=== PATIENT | female | born 1960 | race Caucasian/White ===

== ENCOUNTER 2019-05-20 17:11 | Inpatient (IN) | payer MEDICAID ==
[~2019-05-20] VITALS: Ht 165.1 cm; Wt 67.8 kg
[2019-05-20] MEDS ORDERED: LEVETIRACETAM 500MG PREMIX 100 ML IV ONE (17:30)
[2019-05-20 17:43] LABS: BASOPHILS % 0.5 % (0.0-2.0); EOSINOPHILS % 4.3 % (0.0-5.0); HEMATOCRIT. 35.4 % (36.0-48.0); HEMOGLOBIN. 11.5 g/dL (12.0-16.0); MEAN CORPUSCULAR HEMOGLOBIN 28.7 pg (28.0-32.0); MEAN CORPUSCULAR VOLUME 88.9 fL (81.0-99.0); MONOCYTES % 8.2 % (2.0-8.0); PLATELET 115 x1000/uL (130-400); RED BLOOD CELL COUNT 3.99 mill/uL (4.2-5.4)
[2019-05-20 17:48] LABS: CHLORIDE 111 mEq/L (98-107)
[2019-05-20 17:51] LABS: CLARITY URINE CLEAR (CLEAR); COLOR URINE YELLOW (YELLOW); KETONES URINE NEGATIVE (NEGATIVE); LEUKOCYTE ESTERASE URINE NEGATIVE (NEGATIVE); NITRITE URINE NEGATIVE (NEGATIVE); OCCULT BLOOD URINE NEGATIVE (NEGATIVE); PH URINE 6.5 (4.5-8.0); PROTEIN URINE 1+ (NEGATIVE); SPECIFIC GRAVITY URINE 1.021 (1.005-1.030)
[2019-05-20 17:52] LABS: ETHANOL BLOOD < 10 mg/dL
[2019-05-20 18:05] LABS: *BARBITURATES SCREEN URINE NEGATIVE (NEGATIVE)
[2019-05-20 18:06] LABS: *AMPHETAMINES SCREEN URINE NEGATIVE (NEGATIVE); *BENZODIAZEPINES SCREEN URINE PRESUMTIVE POSITIVE (NEGATIVE); *COCAINE SCREEN URINE NEGATIVE (NEGATIVE); METHADONE URINE SCREEN NEGATIVE (NEGATIVE); OPIATES URINE SCREEN NEGATIVE (NEGATIVE)
[2019-05-20 18:07] LABS: CANNABINOID URINE SCREEN NEGATIVE (NEGATIVE); PHENCYCLIDINE URINE SCREEN NEGATIVE (NEGATIVE)
[2019-05-20] MEDS ORDERED: IPRATROPIUM/ALBUTEROL 0.5-3(2.5)MG/3ML NEB NEB PRN (22:30)
[2019-05-20] MEDS ORDERED: ONDANSETRON HCL 4MG/2ML INJ IV PRN (22:30)
[2019-05-20] MEDS ORDERED: LEVETIRACETAM 500 MG in SODIUM CHLORIDE 0.9% 100 ML IV SCH (22:30)
[2019-05-20] MEDS ORDERED: CLONIDINE 0.1MG TABLET PO PRN (22:30)
[2019-05-20] MEDS ORDERED: MAGNESIUM/ALUMINUM HYDROXIDE/SIMETHICONE 30ML UDC PO PRN (22:30)
[2019-05-20] MEDS ORDERED: ACETAMINOPHEN 325MG TABLET PO PRN (22:30)
[2019-05-20] MEDS ORDERED: ACETAMINOPHEN 650MG/20.3ML UDC GT PRN (22:30)
[2019-05-20] MEDS ORDERED: ACETAMINOPHEN 650MG SUPP PR PRN (22:30)
[2019-05-20] MEDS ORDERED: NA PHOS,M-B/NA PHOS,DI-BA ENEMA 118ML PR PRN (22:30)
[2019-05-20] MEDS ORDERED: DOCUSATE SODIUM 100MG CAPSULE PO PRN (22:30)
[2019-05-20] MEDS ORDERED: GUAIFENESIN 200MG/10ML SUGAR FREE UDC PO PRN (22:30)
[2019-05-20] MEDS ORDERED: DIPHENHYDRAMINE 50MG/ML VIAL IV PRN (22:30)
[2019-05-20] MEDS ORDERED: LORAZEPAM 2MG/ML CPJ IM PRN (22:30)
[2019-05-21 00:15] VITALS: BP 118/64
[2019-05-21 00:19] VITALS: BP 118/64
[2019-05-21] MEDS: DEXT 5%/0.45% NACL 1000ML 1,000 ML IV SCH ×3 (01:49→22:00)
[2019-05-21] MEDS: SODIUM CHLORIDE 0.9% INJ 3ML FLUSH IVF SCH ×3 (06:00→22:00)
[2019-05-21 06:38] LABS: BASOPHILS % 0.4 % (0.0-2.0); CHLORIDE 112 mEq/L (98-107); EOSINOPHILS % 1.3 % (0.0-5.0); HEMOGLOBIN. 9.9 g/dL (12.0-16.0); LYMPHOCYTES % 19.1 % (20.0-50.0); MEAN CORPUSCULAR HEMOGLOBIN 28.4 pg (28.0-32.0); MEAN CORPUSCULAR VOLUME 86.4 fL (81.0-99.0); MEAN PLATELET VOLUME 7.2 fl (7.4-10.4); MONOCYTES % 5.6 % (2.0-8.0); NEUTROPHILS % 73.6 % (40.0-76.0); PLATELET 96 x1000/uL (130-400); RED BLOOD CELL COUNT 3.48 mill/uL (4.2-5.4); RED CELL DISTRIBUTION WIDTH 15.6 % (11.6-14.6)
[2019-05-21 06:52] LABS: LDL CHOLESTEROL 55 mg/dL (5-100)
[2019-05-21 06:54] LABS: HDL CHOLESTEROL 59 mg/dL (40-59)
[2019-05-21 08:00] VITALS: BP 108/63
[2019-05-21] MEDS ORDERED: LEVETIRACETAM 500 MG in SODIUM CHLORIDE 0.9% 100 ML IV SCH (09:00)
[2019-05-21] MEDS ORDERED: POTASSIUM CHLORIDE 20MEQ TABLET SR PO SCH (10:00)
[2019-05-21 12:08] VITALS: BP 92/57
[2019-05-21 16:00] VITALS: BP 100/57
[2019-05-21] MEDS: LEVETIRACETAM 500MG TABLET PO SCH (16:54)
[2019-05-21 20:00] VITALS: BP 101/58
[2019-05-21] MEDS ORDERED: POTASSIUM CHLORIDE 20MEQ TABLET SR PO ONE (20:00)
[2019-05-22] VITALS: BP 107/66
[2019-05-22 00:01] LABS: BASOPHILS % 0.5 % (0.0-2.0); EOSINOPHILS % 3.7 % (0.0-5.0); LYMPHOCYTES % 28.2 % (20.0-50.0); MEAN CORPUSCULAR HEMOGLOBIN 28.6 pg (28.0-32.0); MEAN CORPUSCULAR VOLUME 86.1 fL (81.0-99.0); MONOCYTES % 6.8 % (2.0-8.0); NEUTROPHILS % 60.8 % (40.0-76.0); PLATELET 94 x1000/uL (130-400); RED BLOOD CELL COUNT 3.49 mill/uL (4.2-5.4); RED CELL DISTRIBUTION WIDTH 15.7 % (11.6-14.6)
[2019-05-22 04:00] VITALS: BP 101/77
[2019-05-22] MEDS: SODIUM CHLORIDE 0.9% INJ 3ML FLUSH IVF SCH ×3 (05:07→22:00)
[2019-05-22 08:00] VITALS: BP 96/58
[2019-05-22] MEDS: DEXT 5%/0.45% NACL 1000ML 1,000 ML IV SCH (08:00)
[2019-05-22] MEDS: LEVETIRACETAM 500MG TABLET PO SCH ×2 (08:57→16:46)
[2019-05-22 12:00] VITALS: BP 106/55
[2019-05-22] MEDS ORDERED: KEPP500 MT (12:46)
[2019-05-22 16:00] VITALS: BP 113/65
[2019-05-22 20:00] VITALS: BP 108/60
[2019-05-23] VITALS: BP 101/64
[2019-05-23 04:00] VITALS: BP 99/52
[2019-05-23] MEDS: DEXT 5%/0.45% NACL 1000ML 1,000 ML IV SCH ×2 (04:00→14:00)
[2019-05-23] MEDS ORDERED: POTASSIUM CHLORIDE 20MEQ TABLET SR PO PRN (05:00)
[2019-05-23] MEDS: SODIUM CHLORIDE 0.9% INJ 3ML FLUSH IVF SCH (05:03)
[2019-05-23 08:00] VITALS: BP 98/64
[2019-05-23] MEDS: LEVETIRACETAM 500MG TABLET PO SCH (09:21)
[2019-05-23 11:44] LABS: BASOPHILS % 0.3 % (0.0-2.0); EOSINOPHILS % 2.5 % (0.0-5.0); HEMATOCRIT. 33.2 % (36.0-48.0); LYMPHOCYTES % 24.4 % (20.0-50.0); MEAN CORPUSCULAR HEMOGLOBIN 28.7 pg (28.0-32.0); MEAN CORPUSCULAR VOLUME 86.2 fL (81.0-99.0); MEAN PLATELET VOLUME 7.5 fl (7.4-10.4); MONOCYTES % 6.5 % (2.0-8.0); NEUTROPHILS % 66.3 % (40.0-76.0); PLATELET 100 x1000/uL (130-400); RED BLOOD CELL COUNT 3.85 mill/uL (4.2-5.4); RED CELL DISTRIBUTION WIDTH 15.8 % (11.6-14.6)
[2019-05-23 12:00] VITALS: BP 116/68
[2019-05-23 13:25] LABS: CHLORIDE 107 mEq/L (98-107)
[2019-05-23 14:07] LABS: HEPATITIS B SURFACE ANTIGEN NEGATIVE
[2019-05-23 14:36] LABS: HEPATITIS A AB IGM NEGATIVE (NEGATIVE)
[2019-05-23 15:37] VITALS: BP 116/68
== END 2019-05-23 18:10 | disposition home or self-care (01) | DRG 53 ==
LOC: ER 17:11 → 8WST 22:24 → EDBEDREQTM 22:27 → EDBEDREQ 22:27 → ENRESERV 22:48
PROVIDERS: ADMIT Family Medicine; ATTEND Family Medicine
PROC: 4A00X4Z Measurement of Central Nervous Electrical Activity, External Approach (ICD-10-PCS; principal; 2019-05-23)
DX: G40.909 Epilepsy, unspecified, not intractable, without status epilepticus (principal); D69.6 Thrombocytopenia, unspecified; D64.9 Anemia, unspecified; Z59.0 Homelessness; R74.0 Nonspecific elevation of levels of transaminase and lactic acid dehydrogenase [LDH]; Z91.19 Patient's noncompliance with other medical treatment and regimen
CPT/HCPCS: 36415; 76705; 80061; 80305; 80320; 81003; 82962; 86705; 86709; 86803; 87340; 93005; 95816; 96365; 99285; C1893; J1953; J7050; G0480

== ENCOUNTER 2021-05-08 10:43 | Inpatient (IN) | payer MEDICAID ==
[~2021-05-08] VITALS: Ht 144.8 cm; Wt 56.7 kg
[~2021-05-08 10:43] MED LIST: KEPP500 MT; KEPPSOL MT; LACO100T2 MT; LACT10SO30 MT; LORA-249 PO; MELA1TAB28 PO; OLAN10TA3 PO; QUET25TA PO; THIA250T3 PO; TOPUD PO
[2021-05-08] MEDS ORDERED: SODIUM CHLORIDE 0.9% 1,000 ML IV ONE (11:15)
[2021-05-08] MEDS ORDERED: HALOPERIDOL LACTATE 5MG/ML VIAL IM STA (11:56)
[2021-05-08] MEDS ORDERED: DIPHENHYDRAMINE 50MG/ML VIAL IM STA (11:57)
[2021-05-08 12:15] LABS: CLARITY URINE CLEAR (CLEAR); COLOR URINE YELLOW (YELLOW); KETONES URINE NEGATIVE (NEGATIVE); LEUKOCYTE ESTERASE URINE TRACE (NEGATIVE); NITRITE URINE POSITIVE (NEGATIVE); OCCULT BLOOD URINE NEGATIVE (NEGATIVE); PH URINE 6.5 (4.5-8.0); PROTEIN URINE NEGATIVE (NEGATIVE); SPECIFIC GRAVITY URINE 1.005 (1.005-1.030); UROBILINOGEN URINE 0.2 E.U./dL (0.2-1.0)
[2021-05-08 12:34] LABS: *AMPHETAMINES SCREEN URINE NEGATIVE (NEGATIVE); *BARBITURATES SCREEN URINE NEGATIVE (NEGATIVE); *BENZODIAZEPINES SCREEN URINE NEGATIVE (NEGATIVE); *COCAINE SCREEN URINE NEGATIVE (NEGATIVE); METHADONE URINE SCREEN NEGATIVE (NEGATIVE); OPIATES URINE SCREEN NEGATIVE (NEGATIVE)
[2021-05-08 12:35] LABS: CANNABINOID URINE SCREEN NEGATIVE (NEGATIVE); PHENCYCLIDINE URINE SCREEN NEGATIVE (NEGATIVE)
[2021-05-08 13:33] LABS: BASOPHILS % 0.3 % (0.0-2.0); EOSINOPHILS % 2.2 % (0.0-5.0); HEMATOCRIT. 35.4 % (36.0-48.0); HEMOGLOBIN. 12.4 g/dL (12.0-16.0); LYMPHOCYTES % 29.8 % (20.0-50.0); MEAN CORPUSCULAR HEMOGLOBIN 32.5 pg (28.0-32.0); MEAN CORPUSCULAR VOLUME 92.8 fL (81.0-99.0); MEAN PLATELET VOLUME 7.2 fl (7.4-10.4); MONOCYTES % 8.3 % (2.0-8.0); NEUTROPHILS % 59.4 % (40.0-76.0); PLATELET 100 x1000/uL (130-400); RED BLOOD CELL COUNT 3.81 mill/uL (4.2-5.4)
[2021-05-08 13:39] LABS: CHLORIDE 111 mEq/L (98-107)
[2021-05-08] MEDS ORDERED: LEVETIRACETAM 500MG PREMIX 100 ML IV ONE (15:00)
[2021-05-08] MEDS ORDERED: ACETAMINOPHEN 325MG TABLET PO PRN (15:00)
[2021-05-08] MEDS ORDERED: OLANZAPINE 10 MG/VIAL IM PRN (15:15)
[2021-05-08] MEDS ORDERED: LORAZEPAM 2MG/ML CPJ IV PRN (15:15)
[2021-05-08] MEDS ORDERED: LEVOFLOXACIN 750MG PREMIX 150 ML IV SCH (16:00)
[2021-05-08 16:15] VITALS: BP 116/83
[2021-05-08] MEDS: THIAMINE HCL 100MG TABLET PO SCH (17:36)
[2021-05-08] MEDS: LACOSAMIDE 100 MG TABLET PO SCH (17:36)
[2021-05-08] MEDS ORDERED: QUET25TA PO (18:19)
[2021-05-08] MEDS ORDERED: LORA-249 PO (18:19)
[2021-05-08] MEDS ORDERED: MOM PO (18:19)
[2021-05-08] MEDS ORDERED: OLAN10TA3 PO (18:19)
[2021-05-08] MEDS ORDERED: MELA3TAB42 PO (18:19)
[2021-05-08] MEDS: LEVOFLOXACIN 750MG PREMIX 150 ML IV SCH (18:24)
[2021-05-08 20:00] VITALS: BP 103/60
[2021-05-08] MEDS: LEVETIRACETAM 500MG TABLET PO SCH (20:53)
[2021-05-08] MEDS ORDERED: OLANZAPINE 10MG TABLET PO SCH (22:00)
[2021-05-08] MEDS: LAMOTRIGINE 25MG TABLET PO SCH (22:26)
[2021-05-08] MEDS: HALOPERIDOL LACTATE 5MG/ML VIAL IM PRN (22:27)
[2021-05-09] VITALS: BP 104/61
[2021-05-09 04:00] VITALS: BP 102/60
[2021-05-09] MEDS: HALOPERIDOL LACTATE 5MG/ML VIAL IM PRN ×2 (06:21→17:37)
[2021-05-09 08:00] VITALS: BP 110/52
[2021-05-09] MEDS: LEVETIRACETAM 500MG TABLET PO SCH ×2 (08:22→21:47)
[2021-05-09] MEDS: LAMOTRIGINE 25MG TABLET PO SCH (08:22)
[2021-05-09] MEDS: LACOSAMIDE 100 MG TABLET PO SCH ×2 (08:22→16:31)
[2021-05-09] MEDS: THIAMINE HCL 100MG TABLET PO SCH (08:22)
[2021-05-09] MEDS ORDERED: OLANZAPINE 10 MG/VIAL IM NR (09:00)
[2021-05-09] MEDS: LEVOFLOXACIN 750MG PREMIX 150 ML IV SCH (11:00)
[2021-05-09] MEDS ORDERED: OLANZAPINE 10 MG/VIAL IM PRN (11:45)
[2021-05-09 12:00] VITALS: BP 108/66
[2021-05-09 16:00] VITALS: BP 113/76
[2021-05-09 20:00] VITALS: BP 105/70
[2021-05-09] MEDS: OLANZAPINE 5MG TABLET ODT PO SCH (21:48)
[2021-05-10] VITALS: BP 113/60
[2021-05-10 04:00] VITALS: BP 131/52
[2021-05-10 07:01] LABS: BASOPHILS % 0.6 % (0.0-2.0); EOSINOPHILS % 3.3 % (0.0-5.0); HEMATOCRIT. 37.4 % (36.0-48.0); HEMOGLOBIN. 12.7 g/dL (12.0-16.0); LYMPHOCYTES % 31.1 % (20.0-50.0); MEAN CORPUSCULAR HEMOGLOBIN 31.3 pg (28.0-32.0); MEAN CORPUSCULAR VOLUME 92.3 fL (81.0-99.0); MEAN PLATELET VOLUME 7.5 fl (7.4-10.4); MONOCYTES % 8.7 % (2.0-8.0); NEUTROPHILS % 56.3 % (40.0-76.0); PLATELET 104 x1000/uL (130-400); RED BLOOD CELL COUNT 4.05 mill/uL (4.2-5.4); RED CELL DISTRIBUTION WIDTH 16.1 % (11.6-14.6)
[2021-05-10 07:06] LABS: CHLORIDE 109 mEq/L (98-107)
[2021-05-10 08:00] VITALS: BP 140/59
[2021-05-10] MEDS ORDERED: LIDOCAINE HCL 1% 30ML VIAL (10MG/ML) ONE (08:25)
[2021-05-10] MEDS: LACOSAMIDE 100 MG TABLET PO SCH ×2 (09:32→17:37)
[2021-05-10] MEDS: LAMOTRIGINE 25MG TABLET PO SCH (09:32)
[2021-05-10] MEDS: OLANZAPINE 5MG TABLET ODT PO SCH ×2 (09:32→20:54)
[2021-05-10] MEDS: LEVETIRACETAM 500MG TABLET PO SCH ×2 (09:32→20:54)
[2021-05-10] MEDS: THIAMINE HCL 100MG TABLET PO SCH (09:32)
[2021-05-10] MEDS: LEVOFLOXACIN 500MG TABLET PO SCH (11:47)
[2021-05-10 12:00] VITALS: BP 104/72
[2021-05-10 16:00] VITALS: BP 105/64
[2021-05-10 20:00] VITALS: BP 108/60
[2021-05-10] MEDS: LORAZEPAM 2MG/ML CPJ IV PRN (20:54)
[2021-05-11] VITALS: BP 111/60
[2021-05-11] MEDS: LORAZEPAM 2MG/ML CPJ IV PRN (01:00)
[2021-05-11 04:00] VITALS: BP 114/77
[2021-05-11 08:00] VITALS: BP 108/80
[2021-05-11] MEDS: LAMOTRIGINE 25MG TABLET PO SCH (08:16)
[2021-05-11] MEDS: OLANZAPINE 5MG TABLET ODT PO SCH ×2 (08:16→21:07)
[2021-05-11] MEDS: LEVETIRACETAM 500MG TABLET PO SCH ×2 (08:16→20:56)
[2021-05-11] MEDS: LACOSAMIDE 100 MG TABLET PO SCH ×2 (08:16→16:33)
[2021-05-11] MEDS: THIAMINE HCL 100MG TABLET PO SCH (08:16)
[2021-05-11] MEDS: LEVOFLOXACIN 500MG TABLET PO SCH (11:02)
[2021-05-11 12:00] VITALS: BP 97/66
[2021-05-11 16:00] VITALS: BP 100/72
[2021-05-11 20:00] VITALS: BP 101/67
[2021-05-11] MEDS: POTASSIUM CHLORIDE 20MEQ/PACKET PO SCH (20:56)
[2021-05-12] VITALS: BP 102/66
[2021-05-12] MEDS: HALOPERIDOL LACTATE 5MG/ML VIAL IM PRN ×2 (00:41→10:58)
[2021-05-12 04:00] VITALS: BP 145/73
[2021-05-12] MEDS: LORAZEPAM 2MG/ML CPJ IV PRN (06:59)
[2021-05-12 08:00] VITALS: BP 119/72
[2021-05-12] MEDS: THIAMINE HCL 100MG TABLET PO SCH (10:05)
[2021-05-12] MEDS: LACOSAMIDE 100 MG TABLET PO SCH ×2 (10:06→18:13)
[2021-05-12] MEDS: OLANZAPINE 5MG TABLET ODT PO SCH ×2 (10:06→21:21)
[2021-05-12] MEDS: LAMOTRIGINE 25MG TABLET PO SCH (10:06)
[2021-05-12] MEDS: LEVETIRACETAM 500MG TABLET PO SCH ×2 (10:06→21:21)
[2021-05-12] MEDS: POTASSIUM CHLORIDE 20MEQ/PACKET PO SCH (10:10)
[2021-05-12] MEDS: LEVOFLOXACIN 500MG TABLET PO SCH (11:00)
[2021-05-12 11:12] LABS: CHLORIDE 110 mEq/L (98-107)
[2021-05-12 12:00] VITALS: BP 125/92
[2021-05-12 18:00] VITALS: BP 112/69
[2021-05-12 20:00] VITALS: BP 113/78
[2021-05-13] VITALS: BP 120/60
[2021-05-13 04:00] VITALS: BP 104/71
[2021-05-13] MEDS: LORAZEPAM 2MG/ML CPJ IV PRN (06:29)
[2021-05-13] MEDS: POTASSIUM CHLORIDE 20MEQ/PACKET PO SCH (09:42)
[2021-05-13] MEDS: LEVETIRACETAM 500MG TABLET PO SCH ×2 (09:42→21:48)
[2021-05-13] MEDS: LACOSAMIDE 100 MG TABLET PO SCH ×2 (09:42→18:44)
[2021-05-13] MEDS: OLANZAPINE 5MG TABLET ODT PO SCH ×2 (09:42→21:48)
[2021-05-13] MEDS: THIAMINE HCL 100MG TABLET PO SCH (09:42)
[2021-05-13] MEDS: LAMOTRIGINE 25MG TABLET PO SCH (09:43)
[2021-05-13] MEDS: LEVOFLOXACIN 500MG TABLET PO SCH (10:08)
[2021-05-13 12:00] VITALS: BP 110/60
[2021-05-13] MEDS: RISPERIDONE 0.5MG TABLET PO SCH (15:07)
[2021-05-13 16:00] VITALS: BP 114/70
[2021-05-13 20:00] VITALS: BP 104/76
[2021-05-13] MEDS: NITROFURANTOIN 100MG M/M CAPSULE PO SCH (21:49)
[2021-05-14] VITALS: BP 100/60
[2021-05-14 04:00] VITALS: BP 100/63
[2021-05-14 06:13] LABS: BASOPHILS % 0.4 % (0.0-2.0); HEMATOCRIT. 37.6 % (36.0-48.0); LYMPHOCYTES % 32.7 % (20.0-50.0); MEAN CORPUSCULAR HEMOGLOBIN 31.8 pg (28.0-32.0); MEAN CORPUSCULAR VOLUME 92.2 fL (81.0-99.0); MEAN PLATELET VOLUME 7.6 fl (7.4-10.4); MONOCYTES % 9.2 % (2.0-8.0); NEUTROPHILS % 54.7 % (40.0-76.0); PLATELET 84 x1000/uL (130-400); RED BLOOD CELL COUNT 4.08 mill/uL (4.2-5.4)
[2021-05-14 06:18] LABS: CHLORIDE 110 mEq/L (98-107)
[2021-05-14 08:00] VITALS: BP 98/68
[2021-05-14] MEDS: LACOSAMIDE 100 MG TABLET PO SCH ×2 (09:08→17:36)
[2021-05-14] MEDS: OLANZAPINE 5MG TABLET ODT PO SCH ×2 (09:08→20:31)
[2021-05-14] MEDS: THIAMINE HCL 100MG TABLET PO SCH (09:08)
[2021-05-14] MEDS: POTASSIUM CHLORIDE 20MEQ/PACKET PO SCH (09:08)
[2021-05-14] MEDS: RISPERIDONE 0.5MG TABLET PO SCH (09:08)
[2021-05-14] MEDS: LEVETIRACETAM 500MG TABLET PO SCH ×2 (09:08→20:31)
[2021-05-14] MEDS: LAMOTRIGINE 25MG TABLET PO SCH (09:08)
[2021-05-14] MEDS: NITROFURANTOIN 100MG M/M CAPSULE PO SCH ×2 (09:12→20:32)
[2021-05-14 12:00] VITALS: BP 102/63
[2021-05-14 16:00] VITALS: BP 106/67
[2021-05-14 20:00] VITALS: BP 110/66
[2021-05-15] VITALS: BP 115/77
[2021-05-15 04:00] VITALS: BP 113/60
[2021-05-15 08:00] VITALS: BP 97/58
[2021-05-15] MEDS: NITROFURANTOIN 100MG M/M CAPSULE PO SCH ×2 (09:13→20:03)
[2021-05-15] MEDS: LACOSAMIDE 100 MG TABLET PO SCH ×2 (09:14→17:30)
[2021-05-15] MEDS: LEVETIRACETAM 500MG TABLET PO SCH ×2 (09:14→20:04)
[2021-05-15] MEDS: OLANZAPINE 5MG TABLET ODT PO SCH ×2 (09:14→20:04)
[2021-05-15] MEDS: LAMOTRIGINE 25MG TABLET PO SCH (09:14)
[2021-05-15] MEDS: THIAMINE HCL 100MG TABLET PO SCH (09:14)
[2021-05-15] MEDS: RISPERIDONE 0.5MG TABLET PO SCH (09:23)
[2021-05-15] MEDS: POTASSIUM CHLORIDE 20MEQ/PACKET PO SCH (09:23)
[2021-05-15 12:00] VITALS: BP 103/65
[2021-05-15] MEDS: HALOPERIDOL LACTATE 5MG/ML VIAL IM PRN ×2 (15:11→15:12)
[2021-05-15] MEDS ORDERED: LORAZEPAM 2MG/ML CPJ IV PRN (15:45)
[2021-05-15 16:00] VITALS: BP 97/55
[2021-05-15 20:00] VITALS: BP 100/63
[2021-05-16] VITALS: BP 102/69
[2021-05-16] MEDS: HALOPERIDOL LACTATE 5MG/ML VIAL IM PRN ×2 (01:02→20:06)
[2021-05-16 04:00] VITALS: BP 128/77
[2021-05-16 08:00] VITALS: BP 115/78
[2021-05-16] MEDS: LACOSAMIDE 100 MG TABLET PO SCH ×2 (09:16→18:11)
[2021-05-16] MEDS: RISPERIDONE 0.5MG TABLET PO SCH (09:16)
[2021-05-16] MEDS: LAMOTRIGINE 25MG TABLET PO SCH (09:16)
[2021-05-16] MEDS: LEVETIRACETAM 500MG TABLET PO SCH ×2 (09:16→20:06)
[2021-05-16] MEDS: THIAMINE HCL 100MG TABLET PO SCH (09:16)
[2021-05-16] MEDS: POTASSIUM CHLORIDE 20MEQ/PACKET PO SCH (09:16)
[2021-05-16] MEDS: NITROFURANTOIN 100MG M/M CAPSULE PO SCH ×2 (09:17→20:06)
[2021-05-16] MEDS: OLANZAPINE 5MG TABLET ODT PO SCH ×2 (09:24→20:06)
[2021-05-16 20:00] VITALS: BP 92/59
[2021-05-17] VITALS: BP 113/72
[2021-05-17 01:02] VITALS: BP 113/82
[2021-05-17 04:00] VITALS: BP 96/51
[2021-05-17] MEDS: HALOPERIDOL LACTATE 5MG/ML VIAL IM PRN (04:25)
== END 2021-05-17 10:16 | DRG 53 ==
LOC: ER 10:43 → 8WST 14:15 → EDBEDREQ 14:49 → EDBEDREQTM 14:49 → ENRESERV 15:12
PROVIDERS: ADMIT Family Medicine Adult Medicine; ATTEND Family Medicine Adult Medicine
PROC: 02HV33Z Insertion of Infusion Device into Superior Vena Cava, Percutaneous Approach (ICD-10-PCS; principal; 2021-05-10)
PROC: B548ZZA Ultrasonography of Superior Vena Cava, Guidance (ICD-10-PCS; 2021-05-10)
DX: G40.909 Epilepsy, unspecified, not intractable, without status epilepticus (principal); I62.03 Nontraumatic chronic subdural hemorrhage; D69.6 Thrombocytopenia, unspecified; G93.89 Other specified disorders of brain; F25.9 Schizoaffective disorder, unspecified; N39.0 Urinary tract infection, site not specified; R32 Unspecified urinary incontinence; D72.819 Decreased white blood cell count, unspecified; K76.9 Liver disease, unspecified; R74.01 Elevation of levels of liver transaminase levels; B96.20 Unspecified Escherichia coli [E. coli] as the cause of diseases classified elsewhere; Z16.12 Extended spectrum beta lactamase (ESBL) resistance; Z88.0 Allergy status to penicillin; Z79.1 Long term (current) use of non-steroidal anti-inflammatories (NSAID); Z79.899 Other long term (current) drug therapy; Z78.1 Physical restraint status
CPT/HCPCS: 36415; 71045; 76937; 80048; 80053; 80076; 80305; 80339; 81003; 82542; 85025; 87077; 87186; 93005; 97162; 97166; 99285; C1725; C1769; C1893; J1200; J1630; J1953; J1956; J2060; J3490; J7030; J7040

== ENCOUNTER 2021-05-24 20:33 | Inpatient (IN) | payer MEDICAID ==
[~2021-05-24] VITALS: Ht 160 cm; Wt 58.5 kg
[~2021-05-24 20:33] MED LIST changes: +MELA3TAB42 PO; +MOM PO
[2021-05-24] MEDS ORDERED: ACETAMINOPHEN 325MG TABLET PO PRN (23:15)
[2021-05-24] MEDS ORDERED: LORAZEPAM 0.5MG TABLET PO PRN (23:30)
[2021-05-25] MEDS ORDERED: HALOPERIDOL LACTATE 5MG/ML VIAL IM ONE (00:45)
[2021-05-25] MEDS ORDERED: FOLIC ACID 1MG TABLET PO SCH (09:00)
[2021-05-25] MEDS ORDERED: THIAMINE HCL 100MG TABLET PO SCH (09:00)
[2021-05-25] MEDS: DEXT 5%/0.45% NACL 1000ML 1,000 ML IV SCH (09:12)
[2021-05-25] MEDS: LEVETIRACETAM 500MG PREMIX 100 ML IV SCH ×2 (09:24→21:00)
[2021-05-25] MEDS ORDERED: LORAZEPAM 2MG/ML CPJ IV PRN ×2 (10:15→14:00)
[2021-05-25] MEDS: SODIUM CHLORIDE 0.9% IV SCH (11:25)
[2021-05-25] MEDS: THIAMINE HCL IV SCH (11:25)
[2021-05-25] MEDS: FOLIC ACID IV SCH (11:25)
[2021-05-25] MEDS: HALOPERIDOL LACTATE 5MG/ML VIAL IM PRN ×2 (16:37→21:52)
[2021-05-25] MEDS: VALPROATE SODIUM 500 MG in SODIUM CHLORIDE 0.9% 100 ML IV SCH (17:10)
[2021-05-25] MEDS ORDERED: HYDRALAZINE 20MG/ML VIAL IV PRN (17:45)
[2021-05-25] MEDS ORDERED: LORAZEPAM 2MG/ML CPJ IV NR (17:46)
[2021-05-25 18:42] LABS: BASOPHILS % 0.5 % (0.0-2.0); EOSINOPHILS % 1.3 % (0.0-5.0); HEMATOCRIT. 37.6 % (36.0-48.0); HEMOGLOBIN. 12.9 g/dL (12.0-16.0); LYMPHOCYTES % 20.6 % (20.0-50.0); MEAN CORPUSCULAR HEMOGLOBIN 31.2 pg (28.0-32.0); MEAN CORPUSCULAR VOLUME 90.8 fL (81.0-99.0); MONOCYTES % 7.1 % (2.0-8.0); NEUTROPHILS % 70.5 % (40.0-76.0); PLATELET 111 x1000/uL (130-400); RED BLOOD CELL COUNT 4.14 mill/uL (4.2-5.4); RED CELL DISTRIBUTION WIDTH 15.3 % (11.6-14.6)
[2021-05-25] MEDS ORDERED: CEFTRIAXONE 1 G PREMIX 50 ML IV SCH (18:45)
[2021-05-25 18:50] LABS: CHLORIDE 111 mEq/L (98-107); INR 1.2; PROTHROMBIN TIME 12.7 sec (9.6-11.0)
[2021-05-25 19:00] VITALS: BP 135/75
[2021-05-25] MEDS ORDERED: LEVOFLOXACIN 500MG PREMIX 100 ML IV SCH (19:15)
[2021-05-25 20:00] VITALS: BP 135/75
[2021-05-25] MEDS: ENOXAPARIN 40MG/0.4ML SYR SUBCUT SCH (20:00)
[2021-05-25] MEDS ORDERED: OLANZAPINE 10 MG/VIAL IM ONE (21:00)
[2021-05-25] MEDS ORDERED: HYDRALAZINE 10 MG in DEXTROSE 5% WATER 50 ML IV PRN (23:00)
[2021-05-26] VITALS: BP 157/91
[2021-05-26] MEDS: VALPROATE SODIUM 500 MG in SODIUM CHLORIDE 0.9% 100 ML IV SCH (01:15)
[2021-05-26] MEDS: LORAZEPAM 2MG/ML CPJ IM PRN ×3 (01:15→13:41)
[2021-05-26 04:00] VITALS: BP 140/76
[2021-05-26] MEDS: HALOPERIDOL LACTATE 5MG/ML VIAL IM PRN ×2 (05:53→14:15)
[2021-05-26] MEDS ORDERED: POTASSIUM CHLORIDE 20MEQ TABLET SR PO SCH (06:45)
[2021-05-26 08:00] VITALS: BP 106/65
[2021-05-26] MEDS: DEXT 5%/0.45% NACL 1000ML 1,000 ML IV SCH ×2 (09:05→16:38)
[2021-05-26 12:00] VITALS: BP 107/70
[2021-05-26] MEDS ORDERED: IOHEXOL-300 50 ML BOTTLE IV ONE (13:41)
[2021-05-26] MEDS ORDERED: LIDOCAINE HCL 2% JELLY 5ML ONE (13:42)
[2021-05-26] MEDS ORDERED: LIDOCAINE HCL 1% 30ML VIAL (10MG/ML) ONE (13:42)
[2021-05-26] MEDS ORDERED: LEVETIRACETAM 500MG PREMIX 100 ML IV SCH (15:00)
[2021-05-26 16:00] VITALS: BP 110/70
[2021-05-26] MEDS ORDERED: AMIKACIN 500MG in SODIUM CHLORIDE 0.9% 100ML IV SCH (16:00)
[2021-05-26] MEDS: SODIUM CHLORIDE 0.9% IV SCH (16:20)
[2021-05-26] MEDS: THIAMINE HCL IV SCH (16:20)
[2021-05-26] MEDS: FOLIC ACID IV SCH (16:20)
[2021-05-26 20:00] VITALS: BP 143/80
[2021-05-26] MEDS: ENOXAPARIN 40MG/0.4ML SYR SUBCUT SCH (20:00)
[2021-05-26] MEDS: OLANZAPINE 10MG TABLET GT SCH (21:44)
[2021-05-26] MEDS: LEVETIRACETAM 500MG/5ML CUP GT SCH (21:44)
[2021-05-27] VITALS: BP 127/70
[2021-05-27] MEDS: DEXT 5%/0.45% NACL 1000ML 1,000 ML IV SCH ×2 (01:45→18:25)
[2021-05-27] MEDS ORDERED: AMIKACIN SULFATE 250 MG in SODIUM CHLORIDE 0.9% 100 ML IV SCH (02:00)
[2021-05-27] MEDS: HALOPERIDOL LACTATE 5MG/ML VIAL IM PRN ×2 (03:04→16:34)
[2021-05-27 04:00] VITALS: BP 117/53
[2021-05-27 06:57] LABS: BASOPHILS % 0.4 % (0.0-2.0); EOSINOPHILS % 2.4 % (0.0-5.0); HEMATOCRIT. 41.1 % (36.0-48.0); LYMPHOCYTES % 25.9 % (20.0-50.0); MEAN CORPUSCULAR HEMOGLOBIN 31.5 pg (28.0-32.0); MEAN CORPUSCULAR VOLUME 92.6 fL (81.0-99.0); MEAN PLATELET VOLUME 7.8 fl (7.4-10.4); MONOCYTES % 7.5 % (2.0-8.0); NEUTROPHILS % 63.8 % (40.0-76.0); PLATELET 97 x1000/uL (130-400); RED BLOOD CELL COUNT 4.44 mill/uL (4.2-5.4); RED CELL DISTRIBUTION WIDTH 15.5 % (11.6-14.6)
[2021-05-27 07:05] LABS: CHLORIDE 109 mEq/L (98-107)
[2021-05-27 08:08] VITALS: BP 112/54
[2021-05-27] MEDS: OLANZAPINE 5MG TABLET GT SCH (09:00)
[2021-05-27] MEDS: OLANZAPINE 10MG TABLET GT SCH (10:36)
[2021-05-27] MEDS: LEVETIRACETAM 500MG/5ML CUP GT SCH ×2 (10:36→21:51)
[2021-05-27] MEDS: LACOSAMIDE 100 MG TABLET GT SCH ×2 (10:36→18:07)
[2021-05-27] MEDS: SODIUM CHLORIDE 0.9% IV SCH (10:46)
[2021-05-27] MEDS: THIAMINE HCL IV SCH (10:46)
[2021-05-27] MEDS: FOLIC ACID IV SCH (10:46)
[2021-05-27 12:00] VITALS: BP 134/109
[2021-05-27 16:10] VITALS: BP 119/70
[2021-05-27 20:00] VITALS: BP 146/76
[2021-05-27] MEDS: LORAZEPAM 2MG/ML CPJ IM PRN (21:00)
[2021-05-27] MEDS: POTASSIUM CHLORIDE 20MEQ TABLET SR PO SCH (22:21)
[2021-05-28] VITALS: BP 108/63
[2021-05-28 04:00] VITALS: BP 112/60
[2021-05-28 08:00] VITALS: BP 114/73
[2021-05-28] MEDS: POTASSIUM CHLORIDE 20MEQ TABLET SR PO SCH (08:56)
[2021-05-28] MEDS: THIAMINE HCL IV SCH (08:56)
[2021-05-28] MEDS: LACOSAMIDE 100 MG TABLET GT SCH ×2 (08:56→18:02)
[2021-05-28] MEDS: OLANZAPINE 5MG TABLET GT SCH (08:56)
[2021-05-28] MEDS: LEVETIRACETAM 500MG/5ML CUP GT SCH ×2 (08:56→20:52)
[2021-05-28] MEDS: SODIUM CHLORIDE 0.9% IV SCH (08:56)
[2021-05-28] MEDS: FOLIC ACID IV SCH (08:56)
[2021-05-28] MEDS: LORAZEPAM 2MG/ML CPJ IM PRN (09:34)
[2021-05-28 12:00] VITALS: BP 115/56
[2021-05-28 16:00] VITALS: BP 108/54
[2021-05-28] MEDS: DEXT 5%/0.45% NACL 1000ML 1,000 ML IV SCH (18:02)
[2021-05-28 20:00] VITALS: BP 125/70
[2021-05-28] MEDS: OLANZAPINE 10MG TABLET GT SCH (20:43)
[2021-05-29] VITALS: BP 123/79
[2021-05-29] MEDS: DEXT 5%/0.45% NACL 1000ML 1,000 ML IV SCH ×2 (03:45→20:25)
[2021-05-29 04:00] VITALS: BP 100/54
[2021-05-29] MEDS: LORAZEPAM 2MG/ML CPJ IM PRN ×2 (07:28→13:46)
[2021-05-29 08:00] VITALS: BP 128/84
[2021-05-29] MEDS: HALOPERIDOL LACTATE 5MG/ML VIAL IM PRN ×2 (08:13→17:42)
[2021-05-29] MEDS ORDERED: LIDOCAINE HCL 1% 10 MG/ML 10ML VIAL ONE (08:34)
[2021-05-29] MEDS ORDERED: IOHEXOL-300 50 ML BOTTLE IV ONE (08:34)
[2021-05-29] MEDS ORDERED: LIDOCAINE HCL 2% JELLY 5ML ONE (08:34)
[2021-05-29] MEDS: LEVETIRACETAM 500MG/5ML CUP GT SCH ×2 (09:00→22:16)
[2021-05-29] MEDS: POTASSIUM CHLORIDE 20MEQ TABLET SR PO SCH (09:00)
[2021-05-29] MEDS: LACOSAMIDE 100 MG TABLET GT SCH ×2 (09:00→17:43)
[2021-05-29] MEDS: OLANZAPINE 5MG TABLET GT SCH (09:00)
[2021-05-29] MEDS: SODIUM CHLORIDE 0.9% IV SCH (10:11)
[2021-05-29] MEDS: FOLIC ACID IV SCH (10:11)
[2021-05-29] MEDS: THIAMINE HCL IV SCH (10:11)
[2021-05-29 12:00] VITALS: BP 132/76
[2021-05-29 16:00] VITALS: BP 109/64
[2021-05-29 20:00] VITALS: BP 95/57
[2021-05-29] MEDS: OLANZAPINE 10MG TABLET GT SCH (22:16)
[2021-05-30] VITALS: BP 120/69
[2021-05-30] MEDS: LORAZEPAM 2MG/ML CPJ IM PRN (00:34)
[2021-05-30 04:00] VITALS: BP 123/75
[2021-05-30] MEDS: HALOPERIDOL LACTATE 5MG/ML VIAL IM PRN (06:19)
[2021-05-30 07:56] LABS: BASOPHILS % 0.5 % (0.0-2.0); EOSINOPHILS % 3.5 % (0.0-5.0); HEMATOCRIT. 37.7 % (36.0-48.0); HEMOGLOBIN. 12.9 g/dL (12.0-16.0); LYMPHOCYTES % 33.2 % (20.0-50.0); MEAN CORPUSCULAR HEMOGLOBIN 31.4 pg (28.0-32.0); MEAN CORPUSCULAR VOLUME 91.6 fL (81.0-99.0); MEAN PLATELET VOLUME 7.5 fl (7.4-10.4); MONOCYTES % 9.7 % (2.0-8.0); NEUTROPHILS % 53.1 % (40.0-76.0); PLATELET 115 x1000/uL (130-400); RED BLOOD CELL COUNT 4.11 mill/uL (4.2-5.4); RED CELL DISTRIBUTION WIDTH 14.7 % (11.6-14.6)
[2021-05-30 08:00] VITALS: BP 78/45
[2021-05-30 08:07] LABS: CHLORIDE 109 mEq/L (98-107)
[2021-05-30] MEDS ORDERED: LORAZEPAM 2MG/ML CPJ IV PRN (08:42)
[2021-05-30] MEDS ORDERED: RISPERIDONE 0.5MG TABLET GT SCH (09:00)
[2021-05-30] MEDS: LACOSAMIDE 100 MG TABLET GT SCH ×2 (10:38→17:51)
[2021-05-30] MEDS: POTASSIUM CHLORIDE 20MEQ TABLET SR PO SCH (10:38)
[2021-05-30] MEDS: LEVETIRACETAM 500MG/5ML CUP GT SCH (10:38)
[2021-05-30] MEDS: THIAMINE HCL IV SCH (10:39)
[2021-05-30] MEDS: FOLIC ACID IV SCH (10:39)
[2021-05-30] MEDS: SODIUM CHLORIDE 0.9% IV SCH (10:39)
[2021-05-30] MEDS: OLANZAPINE 5MG TABLET GT SCH (10:53)
[2021-05-30 12:00] VITALS: BP 105/67
[2021-05-30] MEDS: DEXT 5%/0.45% NACL 1000ML 1,000 ML IV SCH (13:23)
[2021-05-30 14:40] VITALS: BP 105/68
[2021-05-30 16:00] VITALS: BP 93/64
== END 2021-05-30 18:10 | DRG 252 ==
LOC: ER 20:33 → ENRESERV 05-25 18:35 → CANRESERV 05-25 18:35 → 6EST 05-25 19:00
PROVIDERS: ADMIT Family Medicine Adult Medicine; ATTEND Family Medicine Adult Medicine
PROC: 0D20XUZ Change Feeding Device in Upper Intestinal Tract, External Approach (ICD-10-PCS; principal; 2021-05-26)
PROC: 02HV33Z Insertion of Infusion Device into Superior Vena Cava, Percutaneous Approach (ICD-10-PCS; 2021-05-26)
PROC: B518ZZA Fluoroscopy of Superior Vena Cava, Guidance (ICD-10-PCS; 2021-05-26)
PROC: B548ZZA Ultrasonography of Superior Vena Cava, Guidance (ICD-10-PCS; 2021-05-26)
PROC: 0DP6XUZ Removal of Feeding Device from Stomach, External Approach (ICD-10-PCS; 2021-05-29)
PROC: 0DH63UZ Insertion of Feeding Device into Stomach, Percutaneous Approach (ICD-10-PCS; 2021-05-29)
DX: K94.23 Gastrostomy malfunction (principal); E44.0 Moderate protein-calorie malnutrition; D69.6 Thrombocytopenia, unspecified; F03.90 Unspecified dementia, unspecified severity, without behavioral disturbance, psychotic disturbance, mood disturbance, and anxiety; G40.909 Epilepsy, unspecified, not intractable, without status epilepticus; Z20.822 Contact with and (suspected) exposure to COVID-19; F20.9 Schizophrenia, unspecified; N39.0 Urinary tract infection, site not specified; Z88.0 Allergy status to penicillin; Z79.899 Other long term (current) drug therapy; Z79.1 Long term (current) use of non-steroidal anti-inflammatories (NSAID); Z78.1 Physical restraint status
CPT/HCPCS: 36415; 36573; 49450; 80048; 80053; 80339; 85025; 87426; 92610; 93005; 99285; C1725; C1769; C1892; J0278; J0360; J1630; J1650; J1953; J1956; J2060; J3411; J3490; J7040; J7050; L8514; Q9967

== ENCOUNTER 2021-06-06 06:49 | Inpatient (IN) | payer MEDICAID ==
[~2021-06-06] VITALS: Ht 152.4 cm; Wt 58.7 kg
[2021-06-06] MEDS ORDERED: LEVETIRACETAM 500MG PREMIX 100 ML IV ONE (07:15)
[2021-06-06] MEDS ORDERED: LORAZEPAM 2MG/ML CPJ IV ONE ×2 (07:15→08:15)
[2021-06-06] MEDS ORDERED: SODIUM CHLORIDE 0.9% 1,000 ML IV ONE (07:15)
[2021-06-06] MEDS ORDERED: LEVETIRACETAM 1000MG PREMIX 100 ML IV ONE (07:15)
[2021-06-06] MEDS ORDERED: DIPHENHYDRAMINE 50MG/ML VIAL IV ONE (07:45)
[2021-06-06] MEDS ORDERED: QUETIAPINE FUMARATE 25MG TABLET GT ONE (10:15)
[2021-06-06] MEDS ORDERED: LORAZEPAM 2MG/ML CPJ IM ONE (13:00)
[2021-06-06 14:02] LABS: CHLORIDE 105 mEq/L (98-107)
[2021-06-06 14:07] LABS: ETHANOL BLOOD < 10 mg/dL
[2021-06-06 14:09] LABS: BASOPHILS % 0.3 % (0.0-2.0); EOSINOPHILS % 0.3 % (0.0-5.0); HEMATOCRIT. 36.1 % (36.0-48.0); HEMOGLOBIN. 12.2 g/dL (12.0-16.0); LYMPHOCYTES % 9.6 % (20.0-50.0); MEAN CORPUSCULAR HEMOGLOBIN 30.9 pg (28.0-32.0); MEAN CORPUSCULAR VOLUME 91.2 fL (81.0-99.0); MEAN PLATELET VOLUME 7.6 fl (7.4-10.4); MONOCYTES % 5.3 % (2.0-8.0); NEUTROPHILS % 84.5 % (40.0-76.0); PLATELET 85 x1000/uL (130-400); RED BLOOD CELL COUNT 3.96 mill/uL (4.2-5.4); RED CELL DISTRIBUTION WIDTH 15.1 % (11.6-14.6)
[2021-06-06 14:11] LABS: CREATINE KINASE 175 IU/L (26-192)
[2021-06-06 14:14] LABS: VALPROIC ACID < 3.0 ug/mL (50-100)
[2021-06-06] MEDS ORDERED: QUETIAPINE FUMARATE 25MG TABLET GT NR (14:30)
[2021-06-06] MEDS ORDERED: DIPHENHYDRAMINE 50MG/ML VIAL IV PRN (14:45)
[2021-06-06] MEDS ORDERED: ONDANSETRON HCL 4MG/2ML INJ IV PRN (14:45)
[2021-06-06] MEDS ORDERED: IPRATROPIUM/ALBUTEROL 0.5-3(2.5)MG/3ML NEB HHN PRN (14:45)
[2021-06-06] MEDS ORDERED: LEVETIRACETAM 500 MG in SODIUM CHLORIDE 0.9% 100 ML IV SCH (14:45)
[2021-06-06] MEDS ORDERED: CLONIDINE 0.1MG TABLET PO PRN (14:45)
[2021-06-06] MEDS ORDERED: LEVETIRACETAM 500MG PREMIX 100 ML IV SCH (19:00)
[2021-06-06 21:08] LABS: CLARITY URINE CLOUDY (CLEAR); COLOR URINE YELLOW (YELLOW); KETONES URINE NEGATIVE (NEGATIVE); LEUKOCYTE ESTERASE URINE 1+ (NEGATIVE); NITRITE URINE POSITIVE (NEGATIVE); OCCULT BLOOD URINE TRACE (NEGATIVE); PROTEIN URINE NEGATIVE (NEGATIVE); SPECIFIC GRAVITY URINE 1.014 (1.005-1.030)
[2021-06-06 21:18] LABS: *AMPHETAMINES SCREEN URINE NEGATIVE (NEGATIVE); *BARBITURATES SCREEN URINE NEGATIVE (NEGATIVE); CANNABINOID URINE SCREEN NEGATIVE (NEGATIVE)
[2021-06-06 21:19] LABS: *BENZODIAZEPINES SCREEN URINE PRESUMTIVE POSITIVE (NEGATIVE); *COCAINE SCREEN URINE NEGATIVE (NEGATIVE); METHADONE URINE SCREEN NEGATIVE (NEGATIVE); OPIATES URINE SCREEN NEGATIVE (NEGATIVE); PHENCYCLIDINE URINE SCREEN NEGATIVE (NEGATIVE)
[2021-06-06 22:08] VITALS: BP 111/75
[2021-06-06 22:09] VITALS: BP 111/75
[2021-06-06 23:09] VITALS: BP 113/102
[2021-06-07] VITALS (12 sets, daily range): BP systolic 92–136; BP diastolic 43–75
[2021-06-07 08:38] LABS: BASOPHILS % 0.3 % (0.0-2.0); EOSINOPHILS % 1.6 % (0.0-5.0); HEMATOCRIT. 33.7 % (36.0-48.0); HEMOGLOBIN. 11.5 g/dL (12.0-16.0); LYMPHOCYTES % 27.6 % (20.0-50.0); MEAN CORPUSCULAR HEMOGLOBIN 30.8 pg (28.0-32.0); MEAN PLATELET VOLUME 7.9 fl (7.4-10.4); MONOCYTES % 6.9 % (2.0-8.0); NEUTROPHILS % 63.6 % (40.0-76.0); PLATELET 94 x1000/uL (130-400); RED BLOOD CELL COUNT 3.74 mill/uL (4.2-5.4); RED CELL DISTRIBUTION WIDTH 15.2 % (11.6-14.6)
[2021-06-07 09:00] LABS: CHLORIDE 111 mEq/L (98-107)
[2021-06-07 09:08] LABS: LDL CHOLESTEROL 54 mg/dL (5-100)
[2021-06-07 09:10] LABS: HDL CHOLESTEROL 48 mg/dL (40-59)
[2021-06-07] MEDS: LEVETIRACETAM 500MG PREMIX 100 ML IV SCH ×2 (10:40→20:37)
[2021-06-07] MEDS: LORAZEPAM 2MG/ML CPJ IV PRN (13:13)
[2021-06-07] MEDS ORDERED: [UNRECOGNIZED DRUG - REMARK] XX SCH (14:45)
[2021-06-07] MEDS: POTASSIUM CHLORIDE 20MEQ TABLET SR PO SCH (15:20)
[2021-06-07] MEDS: OLANZAPINE 10MG TABLET PO SCH (15:20)
[2021-06-07] MEDS: THIAMINE HCL 100MG TABLET PO SCH (15:21)
[2021-06-07] MEDS: LACOSAMIDE 100 MG TABLET PO SCH (20:37)
[2021-06-08] VITALS (12 sets, daily range): BP systolic 98–120; BP diastolic 56–82
[2021-06-08 07:24] LABS: CHLORIDE 113 mEq/L (98-107)
[2021-06-08 07:38] LABS: BASOPHILS % 0.6 % (0.0-2.0); EOSINOPHILS % 3.7 % (0.0-5.0); HEMATOCRIT. 34.4 % (36.0-48.0); LYMPHOCYTES % 29.5 % (20.0-50.0); MEAN CORPUSCULAR HEMOGLOBIN 31.5 pg (28.0-32.0); MEAN CORPUSCULAR VOLUME 89.9 fL (81.0-99.0); MEAN PLATELET VOLUME 7.8 fl (7.4-10.4); MONOCYTES % 8.1 % (2.0-8.0); NEUTROPHILS % 58.1 % (40.0-76.0); PLATELET 91 x1000/uL (130-400); RED BLOOD CELL COUNT 3.83 mill/uL (4.2-5.4); RED CELL DISTRIBUTION WIDTH 14.8 % (11.6-14.6)
[2021-06-08] MEDS: OLANZAPINE 10MG TABLET PO SCH (08:57)
[2021-06-08] MEDS: LEVETIRACETAM 500MG PREMIX 100 ML IV SCH ×2 (08:57→21:02)
[2021-06-08] MEDS: THIAMINE HCL 100MG TABLET PO SCH (08:57)
[2021-06-08] MEDS: POTASSIUM CHLORIDE 20MEQ TABLET SR PO SCH (08:57)
[2021-06-08] MEDS: LACOSAMIDE 100 MG TABLET PO SCH ×2 (08:57→21:13)
[2021-06-08] MEDS ORDERED: QUET100T MT ×3 (14:52→14:53)
[2021-06-08] MEDS: ZONISAMIDE 100MG CAPSULE PO SCH (16:54)
[2021-06-08] MEDS: QUETIAPINE FUMARATE 25MG TABLET PO SCH (21:13)
[2021-06-09] VITALS (12 sets, daily range): BP systolic 90–121; BP diastolic 48–74
[2021-06-09 06:55] LABS: INR 1.2; PROTHROMBIN TIME 13.2 sec (9.6-11.0)
[2021-06-09 07:14] LABS: BASOPHILS % 0.4 % (0.0-2.0); EOSINOPHILS % 4.5 % (0.0-5.0); HEMATOCRIT. 35.9 % (36.0-48.0); HEMOGLOBIN. 12.4 g/dL (12.0-16.0); LYMPHOCYTES % 29.2 % (20.0-50.0); MEAN CORPUSCULAR HEMOGLOBIN 31.3 pg (28.0-32.0); MEAN CORPUSCULAR VOLUME 90.6 fL (81.0-99.0); MEAN PLATELET VOLUME 7.6 fl (7.4-10.4); MONOCYTES % 8.1 % (2.0-8.0); NEUTROPHILS % 57.8 % (40.0-76.0); PLATELET 94 x1000/uL (130-400); RED BLOOD CELL COUNT 3.96 mill/uL (4.2-5.4); RED CELL DISTRIBUTION WIDTH 14.9 % (11.6-14.6)
[2021-06-09 07:24] LABS: CHLORIDE 111 mEq/L (98-107)
[2021-06-09] MEDS: LEVETIRACETAM 500MG PREMIX 100 ML IV SCH ×2 (09:59→21:36)
[2021-06-09] MEDS: POTASSIUM CHLORIDE 20MEQ TABLET SR PO SCH (10:00)
[2021-06-09] MEDS: QUETIAPINE FUMARATE 50MG TABLET PO SCH (10:01)
[2021-06-09] MEDS: THIAMINE HCL 100MG TABLET PO SCH (10:01)
[2021-06-09] MEDS: OLANZAPINE 10MG TABLET PO SCH (10:01)
[2021-06-09] MEDS: LACOSAMIDE 100 MG TABLET PO SCH ×2 (10:01→21:41)
[2021-06-09] MEDS: ZONISAMIDE 100MG CAPSULE PO SCH (10:01)
[2021-06-09] MEDS: QUETIAPINE FUMARATE 25MG TABLET PO SCH (21:41)
[2021-06-10] VITALS (10 sets, daily range): BP systolic 90–116; BP diastolic 50–75
[2021-06-10] MEDS: DEXT 5%/0.9% NACL 1,000 ML IV SCH ×2 (00:04→16:40)
[2021-06-10] MEDS: OLANZAPINE 10MG TABLET PO SCH (09:00)
[2021-06-10] MEDS: POTASSIUM CHLORIDE 20MEQ TABLET SR PO SCH (09:00)
[2021-06-10] MEDS: LACOSAMIDE 100 MG TABLET PO SCH (09:00)
[2021-06-10] MEDS ORDERED: ZINC SULFATE 220 MG ( 50 ) CAPSULE PO SCH (09:00)
[2021-06-10] MEDS ORDERED: ASCORBIC ACID 500 MG TABLET PO SCH (09:00)
[2021-06-10] MEDS: ZONISAMIDE 100MG CAPSULE PO SCH (09:00)
[2021-06-10] MEDS: LEVETIRACETAM 500MG PREMIX 100 ML IV SCH (11:04)
[2021-06-10] MEDS: QUETIAPINE FUMARATE 50MG TABLET PO SCH (11:17)
[2021-06-10] MEDS: THIAMINE HCL 100MG TABLET PO SCH (11:18)
[2021-06-10] MEDS: LORAZEPAM 2MG/ML CPJ IV PRN (14:00)
[2021-06-10] MEDS ORDERED: IOHEXOL-300 50 ML BOTTLE IV ONE (14:17)
[2021-06-10] MEDS ORDERED: LIDOCAINE HCL 1% 30ML VIAL (10MG/ML) ONE (14:17)
[2021-06-10] MEDS ORDERED: LIDOCAINE HCL 2% JELLY 5ML ONE (14:17)
== END 2021-06-10 19:42 | DRG 53 ==
LOC: ER 07:01 → EDBEDREQTM 13:33 → EDBEDREQ 13:33 → ENRESERV 19:52 → 3WST 22:01
PROVIDERS: ADMIT Internal Medicine; ATTEND Internal Medicine
PROC: 02HV33Z Insertion of Infusion Device into Superior Vena Cava, Percutaneous Approach (ICD-10-PCS; principal; 2021-06-06)
DX: G40.401 Other generalized epilepsy and epileptic syndromes, not intractable, with status epilepticus (principal); G93.41 Metabolic encephalopathy; G93.89 Other specified disorders of brain; K74.60 Unspecified cirrhosis of liver; K94.13 Enterostomy malfunction; F20.9 Schizophrenia, unspecified; K62.3 Rectal prolapse; R13.10 Dysphagia, unspecified; S30.0XXA Contusion of lower back and pelvis, initial encounter; K76.9 Liver disease, unspecified; X58.XXXA Exposure to other specified factors, initial encounter; Y83.8 Other surgical procedures as the cause of abnormal reaction of the patient, or of later complication, without mention of misadventure at the time of the procedure; Z20.822 Contact with and (suspected) exposure to COVID-19; Y82.8 Other medical devices associated with adverse incidents; Z78.1 Physical restraint status; Y93.89 Activity, other specified; Y92.89 Other specified places as the place of occurrence of the external cause; Y99.8 Other external cause status; I69.30 Unspecified sequelae of cerebral infarction
CPT/HCPCS: 36415; 71045; 76937; 80048; 80053; 80061; 80165; 80185; 80305; 80320; 80339; 81003; 82550; 82962; 83605; 83880; 84443; 84484; 85025; 86850; 86900; 87426; 92610; 93005; 93970; 99291; C1725; J1200; J1953; J2060; J3490; J7030; J7042; Q9967; A4315; G0480

== ENCOUNTER 2021-08-17 15:32 | Inpatient (IN) | payer MEDICAID ==
[~2021-08-17] VITALS: Ht 165.1 cm; Wt 57.8 kg
[~2021-08-17 15:32] MED LIST changes: -KEPPSOL MT; -MELA1TAB28 PO; +QUET100T MT; -QUET25TA PO
[2021-08-17] MEDS ORDERED: HYDROCODONE/ACETAMINOPHEN 5/325MG TABLET PO PRN (21:00)
[2021-08-17] MEDS ORDERED: ONDANSETRON HCL 4MG/2ML INJ IV PRN (21:00)
[2021-08-17] MEDS ORDERED: MORPHINE SULFATE 2 MG/ML CPJ (NOT FOR IM USE) IV PRN (21:00)
[2021-08-17] MEDS ORDERED: DIPHENHYDRAMINE 50MG/ML VIAL IV PRN (21:00)
[2021-08-17 21:29] LABS: BASOPHILS % 0.5 % (0.0-2.0); EOSINOPHILS % 0.8 % (0.0-5.0); HEMATOCRIT. 32.1 % (36.0-48.0); HEMOGLOBIN. 10.7 g/dL (12.0-16.0); LYMPHOCYTES % 13.5 % (20.0-50.0); MEAN CORPUSCULAR HEMOGLOBIN 29.9 pg (28.0-32.0); MEAN CORPUSCULAR VOLUME 89.9 fL (81.0-99.0); MEAN PLATELET VOLUME 7.9 fl (7.4-10.4); MONOCYTES % 7.5 % (2.0-8.0); NEUTROPHILS % 77.7 % (40.0-76.0); PLATELET 124 x1000/uL (130-400); RED BLOOD CELL COUNT 3.57 mill/uL (4.2-5.4); RED CELL DISTRIBUTION WIDTH 16.1 % (11.6-14.6)
[2021-08-17 21:35] LABS: CHLORIDE 118 mEq/L (98-107)
[2021-08-17 21:42] LABS: INR 1.3; PARTIAL THROMBOPLASTIN TIME 26.2 sec (23.4-31.0); PROTHROMBIN TIME 13.3 sec (9.6-11.0)
[2021-08-17] MEDS: LORAZEPAM 2MG/ML CPJ IV PRN (22:49)
[2021-08-17] MEDS: DEXT 5%/0.45% NACL 1000ML 1,000 ML IV SCH (22:49)
[2021-08-18] MEDS: LORAZEPAM 2MG/ML CPJ IV PRN ×2 (03:47→21:28)
[2021-08-18 08:25] LABS: CHLORIDE 117 mEq/L (98-107)
[2021-08-18 08:30] LABS: HEMOGLOBIN. 10.3 g/dL (12.0-16.0); MEAN CORPUSCULAR HEMOGLOBIN 31.1 pg (28.0-32.0); MEAN CORPUSCULAR VOLUME 90.3 fL (81.0-99.0); RED BLOOD CELL COUNT 3.33 mill/uL (4.2-5.4); RED CELL DISTRIBUTION WIDTH 15.9 % (11.6-14.6)
[2021-08-18 08:40] LABS: PHOSPHORUS 2.6 mg/dL (2.5-4.9)
[2021-08-18 10:00] VITALS: BP 113/63
[2021-08-18 12:00] VITALS: BP 116/59
[2021-08-18 14:06] LABS: MEAN PLATELET VOLUME 8.4 fl (7.4-10.4); PLATELET 119 x1000/uL (130-400); PLATELET ESTIMATE SLIGHTLY DECREASED
[2021-08-18] MEDS ORDERED: NALOXONE HCL 0.4MG/ML VIAL IV PRN (14:15)
[2021-08-18 16:00] VITALS: BP 122/79
[2021-08-18] MEDS: CEFTRIAXONE 1,000 MG in DEXTROSE 5% WATER 50 ML IV SCH (19:49)
[2021-08-18 20:00] VITALS: BP 121/79
[2021-08-18] MEDS: DEXT 5%/0.45% NACL 1000ML 1,000 ML IV SCH (20:28)
[2021-08-18] MEDS ORDERED: ACETAMINOPHEN 325MG TABLET PO SCH (20:45)
[2021-08-18] MEDS ORDERED: LORAZEPAM 0.5MG TABLET PO PRN (20:45)
[2021-08-18] MEDS ORDERED: MAGNESIUM 2 G PREMIX 50 ML IV NR (21:30)
[2021-08-18] MEDS: LEVETIRACETAM 500MG TABLET PEG SCH (21:46)
[2021-08-19] VITALS (7 sets, daily range): BP systolic 89–133; BP diastolic 57–81
[2021-08-19] MEDS: OLANZAPINE 10MG TABLET PO SCH (04:03)
[2021-08-19] MEDS: THIAMINE HCL 100MG TABLET PO SCH ×2 (09:00→10:21)
[2021-08-19] MEDS: LEVETIRACETAM 500MG TABLET PEG SCH ×2 (10:21→17:33)
[2021-08-19] MEDS ORDERED: NITR-87 MT (12:29)
[2021-08-19] MEDS: CEFTRIAXONE 1,000 MG in DEXTROSE 5% WATER 50 ML IV SCH (18:00)
[2021-08-19] MEDS: ACETAMINOPHEN 325MG TABLET PO PRN (18:25)
[2021-08-19] MEDS: DEXT 5%/0.45% NACL 1000ML 1,000 ML IV SCH (21:00)
[2021-08-20] VITALS: BP 134/62
[2021-08-20 03:51] VITALS: BP 96/57
[2021-08-20] MEDS: OLANZAPINE 10MG TABLET PO SCH (04:00)
[2021-08-20] MEDS: ACETAMINOPHEN 325MG TABLET PO PRN (04:00)
[2021-08-20 08:00] VITALS: BP 76/48
[2021-08-20] MEDS: THIAMINE HCL 100MG TABLET PO SCH (10:17)
[2021-08-20] MEDS: LEVETIRACETAM 500MG TABLET PEG SCH ×2 (10:17→17:00)
[2021-08-20] MEDS ORDERED: CEFTRIAXONE 1 G PREMIX 50 ML IV SCH (11:30)
[2021-08-20 12:00] VITALS: BP 90/50
[2021-08-20] MEDS ORDERED: LIDOCAINE HCL 1% 20ML VIAL (Pyxis) INJ ONE (12:49)
[2021-08-20] MEDS: CEFTRIAXONE 1,000 MG in DEXTROSE 5% WATER 50 ML IV SCH (14:00)
[2021-08-20 19:56] LABS: HEMATOCRIT 33.1 % (36.0-48.0); HEMOGLOBIN 11.1 g/dL (12.0-16.0)
[2021-08-20 20:00] VITALS: BP 86/64
[2021-08-20 20:24] LABS: TOTAL IRON BINDING CAPACITY 309 ug/dL (250-450)
[2021-08-20 22:10] LABS: CLARITY URINE CLOUDY (CLEAR); COLOR URINE ORANGE (YELLOW); KETONES URINE TRACE (NEGATIVE); LEUKOCYTE ESTERASE URINE 2+ (NEGATIVE); NITRITE URINE NEGATIVE (NEGATIVE); OCCULT BLOOD URINE NEGATIVE (NEGATIVE); PROTEIN URINE TRACE (NEGATIVE)
[2021-08-20] MEDS: PANTOPRAZOLE SODIUM 40 MG/VIAL IV SCH (22:51)
[2021-08-20] MEDS: DEXT 5%/0.45% NACL 1000ML 1,000 ML IV SCH (23:00)
[2021-08-20 23:38] LABS: FOLIC ACID (FOLATE) SERUM 15.5 ng/mL (>5.38)
[2021-08-21] VITALS: BP 81/51
[2021-08-21 04:00] VITALS: BP 92/45
[2021-08-21] MEDS: OLANZAPINE 10MG TABLET PO SCH (04:00)
[2021-08-21] MEDS ORDERED: SODIUM CHLORIDE 0.9% 500 ML IV ONE (09:00)
[2021-08-21] MEDS: LEVETIRACETAM 500MG TABLET PEG SCH ×2 (09:33→18:01)
[2021-08-21] MEDS: PANTOPRAZOLE SODIUM 40 MG/VIAL IV SCH ×2 (09:33→19:50)
[2021-08-21] MEDS: THIAMINE HCL 100MG TABLET PO SCH (09:33)
[2021-08-21] MEDS: FERROUS SULFATE 325MG TABLET PO SCH ×2 (13:54→18:01)
[2021-08-21] MEDS: CEFTRIAXONE 1,000 MG in DEXTROSE 5% WATER 50 ML IV SCH (13:55)
[2021-08-21 19:28] LABS: HEMATOCRIT 31.3 % (36.0-48.0); HEMOGLOBIN 10.4 g/dL (12.0-16.0)
[2021-08-21] MEDS: DEXT 5%/0.45% NACL 1000ML 1,000 ML IV SCH (19:50)
[2021-08-21 20:00] VITALS: BP_SYST 123; BP_SYST 88; BP_DIAS 52; BP_DIAS 61
[2021-08-22] VITALS: BP 94/56
[2021-08-22] MEDS: OLANZAPINE 10MG TABLET PO SCH (03:02)
[2021-08-22] MEDS: ACETAMINOPHEN 325MG TABLET PO PRN (03:09)
[2021-08-22 04:00] VITALS: BP 88/51
[2021-08-22 08:00] VITALS: BP 95/58
[2021-08-22] MEDS: PANTOPRAZOLE SODIUM 40 MG/VIAL IV SCH ×2 (09:09→21:59)
[2021-08-22] MEDS: FERROUS SULFATE 325MG TABLET PO SCH ×3 (09:10→17:37)
[2021-08-22] MEDS: THIAMINE HCL 100MG TABLET PO SCH (09:10)
[2021-08-22] MEDS: LEVETIRACETAM 500MG TABLET PEG SCH ×2 (09:10→17:37)
[2021-08-22 12:00] VITALS: BP 90/56
[2021-08-22] MEDS: CEFTRIAXONE 1,000 MG in DEXTROSE 5% WATER 50 ML IV SCH (14:44)
[2021-08-22 16:00] VITALS: BP 109/64
[2021-08-22 20:00] VITALS: BP 111/60
[2021-08-22 20:07] LABS: HEMATOCRIT 31.2 % (36.0-48.0); HEMOGLOBIN 10.5 g/dL (12.0-16.0)
[2021-08-22] MEDS: MEROPENEM 1,000 MG in SODIUM CHLORIDE 0.9% 100 ML IV SCH (20:52)
[2021-08-22] MEDS: DEXT 5%/0.45% NACL 1000ML 1,000 ML IV SCH (21:59)
[2021-08-23] VITALS: BP 104/56
[2021-08-23 04:00] VITALS: BP 93/46
[2021-08-23] MEDS: MEROPENEM 1,000 MG in SODIUM CHLORIDE 0.9% 100 ML IV SCH (04:03)
[2021-08-23] MEDS: OLANZAPINE 10MG TABLET PO SCH (04:03)
[2021-08-23] MEDS: THIAMINE HCL 100MG TABLET PO SCH (08:54)
[2021-08-23] MEDS: LEVETIRACETAM 500MG TABLET PEG SCH (08:54)
[2021-08-23] MEDS: FERROUS SULFATE 325MG TABLET PO SCH (08:54)
[2021-08-23] MEDS: PANTOPRAZOLE SODIUM 40 MG/VIAL IV SCH (08:54)
[2021-08-23 10:36] VITALS: BP 103/70
== END 2021-08-23 11:29 | DRG 720 ==
LOC: ER 15:32 → 6EST 20:03 → EDBEDREQ 20:06 → SUPCPDRO 20:57 → EDBEDREQSVC 08-18 07:21 → ENRESERV 08-18 07:54 → 6EST 08-18 17:59
PROVIDERS: ADMIT Internal Medicine Nephrology; ATTEND Internal Medicine Nephrology
PROC: 02HV33Z Insertion of Infusion Device into Superior Vena Cava, Percutaneous Approach (ICD-10-PCS; principal; 2021-08-20)
PROC: B518ZZA Fluoroscopy of Superior Vena Cava, Guidance (ICD-10-PCS; 2021-08-20)
PROC: B548ZZA Ultrasonography of Superior Vena Cava, Guidance (ICD-10-PCS; 2021-08-20)
DX: A41.9 Sepsis, unspecified organism (principal); E43 Unspecified severe protein-calorie malnutrition; E87.0 Hyperosmolality and hypernatremia; F29 Unspecified psychosis not due to a substance or known physiological condition; R56.9 Unspecified convulsions; K94.21 Gastrostomy hemorrhage; F20.9 Schizophrenia, unspecified; I10 Essential (primary) hypertension; D64.9 Anemia, unspecified; K21.9 Gastro-esophageal reflux disease without esophagitis; R74.8 Abnormal levels of other serum enzymes; N39.0 Urinary tract infection, site not specified; E87.6 Hypokalemia; Z20.822 Contact with and (suspected) exposure to COVID-19; Z88.0 Allergy status to penicillin; Z88.8 Allergy status to other drugs, medicaments and biological substances; Z79.899 Other long term (current) drug therapy; Z86.73 Personal history of transient ischemic attack (TIA), and cerebral infarction without residual deficits; Z78.1 Physical restraint status; Z68.21 Body mass index [BMI] 21.0-21.9, adult
CPT/HCPCS: 36415; 36573; 71045; 74176; 80048; 80053; 81003; 82607; 82728; 82746; 83540; 83550; 83735; 83880; 84100; 84484; 85014; 85018; 85025; 86850; 86900; 87077; 87186; 87426; 93005; 99285; C1725; C1893; C9113; J0696; J2060; J2185; J3475; J3490; J7040; J7050; J7060

== ENCOUNTER 2022-04-05 12:33 | Emergency (ER) | payer MEDICAID ==
[~2022-04-05] VITALS: Ht 165.1 cm; Wt 68.0 kg
[~2022-04-05 12:33] MED LIST changes: +NITR-87 MT
[2022-04-05] MEDS ORDERED: LEVETIRACETAM 1000MG PREMIX 100 ML IV ONE (12:45)
[2022-04-05] MEDS ORDERED: SODIUM CHLORIDE 0.9% 1,000 ML IV ONE (12:45)
[2022-04-05 14:30] LABS: BASOPHILS % 0.5 % (0.0-2.0); EOSINOPHILS % 2.1 % (0.0-5.0); HEMATOCRIT. 40.2 % (36.0-48.0); HEMOGLOBIN. 13.4 g/dL (12.0-16.0); LYMPHOCYTES % 34.1 % (20.0-50.0); MEAN CORPUSCULAR HEMOGLOBIN 30.8 pg (28.0-32.0); MEAN CORPUSCULAR VOLUME 92.1 fL (81.0-99.0); MEAN PLATELET VOLUME 7.6 fl (7.4-10.4); MONOCYTES % 6.9 % (2.0-8.0); NEUTROPHILS % 56.4 % (40.0-76.0); PLATELET 91 x1000/uL (130-400); RED BLOOD CELL COUNT 4.37 mill/uL (4.2-5.4); RED CELL DISTRIBUTION WIDTH 15.8 % (11.6-14.6)
[2022-04-05 14:45] LABS: CHLORIDE 108 mEq/L (98-107)
[2022-04-05 14:54] LABS: ETHANOL BLOOD < 10 mg/dL
[2022-04-05 16:36] LABS: CLARITY URINE TURBID (CLEAR); COLOR URINE YELLOW (YELLOW); KETONES URINE NEGATIVE (NEGATIVE); LEUKOCYTE ESTERASE URINE 3+ (NEGATIVE); NITRITE URINE POSITIVE (NEGATIVE); OCCULT BLOOD URINE 1+ (NEGATIVE); PROTEIN URINE 2+ (NEGATIVE)
[2022-04-05] MEDS ORDERED: CIPR500T5 MT (16:45)
[2022-04-05 16:49] LABS: *AMPHETAMINES SCREEN URINE NEGATIVE (NEGATIVE); *BARBITURATES SCREEN URINE NEGATIVE (NEGATIVE); *BENZODIAZEPINES SCREEN URINE PRESUMTIVE POSITIVE (NEGATIVE); *COCAINE SCREEN URINE NEGATIVE (NEGATIVE); CANNABINOID URINE SCREEN NEGATIVE (NEGATIVE); METHADONE URINE SCREEN NEGATIVE (NEGATIVE); OPIATES URINE SCREEN NEGATIVE (NEGATIVE); PHENCYCLIDINE URINE SCREEN NEGATIVE (NEGATIVE)
[2022-04-05] MEDS ORDERED: LEVOFLOXACIN 750MG PREMIX 150 ML IV NR (17:00)
[2022-04-05 21:52] VITALS: BP 130/82
== END 2022-04-05 22:03 | disposition home or self-care (01) ==
LOC: ER 13:02
DX: R56.9 Unspecified convulsions (principal); N39.0 Urinary tract infection, site not specified; F41.9 Anxiety disorder, unspecified; K21.9 Gastro-esophageal reflux disease without esophagitis; I10 Essential (primary) hypertension; F20.9 Schizophrenia, unspecified; Z86.73 Personal history of transient ischemic attack (TIA), and cerebral infarction without residual deficits
CPT/HCPCS: 36415; 70450; 80053; 80305; 80320; 81003; 82140; 82542; 85025; 93005; 96365; 96367; 99285; J1953; J1956; J7030; G0480